=== PATIENT | female | born 1965 | race Caucasian/White ===

== ENCOUNTER → 2019-10-27 09:27 | Outpatient (CLI) | payer BC, SELFPAY ==
--- NOTE | ~2019-10-27 | MM_ITS ---
EXAMINATION: MM diagnostic rene RT w javi HISTORY: Six-month follow-up for probably benign right breast calcifications TECHNIQUE: Craniocaudal, mediolateral, and mediolateral oblique 3-D tomosynthesis images of the right breast were performed and synthetic 2-D images were generated. Magnification views are also obtained . CAD analysis was submitted and interpreted. COMPARISON: 04/13/2017, 01/06/2019, 12/23/2018, 10/28/2017, 10/02/2016 BREAST PARENCHYMAL COMPOSITION: There are scattered areas of fibroglandular density. FINDINGS: Again seen are subtle grouped calcifications in the middle third of the upper outer quadran t of the breast at the 10:00 location 5 cm from the nipple. These appear to be round in morphology. N o suspicious mass or architectural distortion are identified. There has been no suspicious interval c hange. IMPRESSION: 1. Stable, probably benign right breast calcifications. 2. Given one year of interval stability, recommend 12 month followup right diagnostic mammogram. Of n ote, the patient is also due for screening mammography on the left in December of this year. BI-RADS category 3, probably benign findings. Reviewed, dictated and finalized at location A. IMPRESSION: 1. Stable, probably benign right breast calcifications. 2. Given one year of interval stability, recommend 12 month followup right diag nostic mammogram. Of note, the patient is also due for screening mammography on the left in December of this year. BI-RADS category 3, probably benign findings.
== END ==
PROVIDERS: Visit Provider Obstetrics & Gynecology
DX: R92.8 Other abnormal and inconclusive findings on diagnostic imaging of breast (principal)
CPT/HCPCS: 77061; 77065; G0279

== ENCOUNTER → 2020-03-29 10:42 | Outpatient (CLI) | payer BC, SELFPAY ==
--- NOTE | ~2020-03-29 | MM_ITS ---
EXAMINATION: MM screening rene BI w javi HISTORY: Screening TECHNIQUE: Craniocaudal and mediolateral oblique 3-D tomosynthesis images were obtained and synthetic 2-D images were generated. CAD analysis was submitted and interpreted. COMPARISON: Comparison to multiple prior studies sequentially, with oldest reviewed study dated 10/28. BREAST PARENCHYMAL COMPOSITION: There are scattered areas of fibroglandular density. FINDINGS: There is no evidence of suspicious mass, calcification, or architectural distortion to sugg est malignancy in either breast. There has been no suspicious interval change. IMPRESSION: 1. No mammographic evidence of malignancy. 2. Recommend routine screening mammography in one year. BI-RADS Category 1: Negative Reviewed, dictated and finalized at location A.
== END ==
PROVIDERS: PCP Family Medicine; Visit Provider Nurse Practitioner Obstetrics & Gynecology
DX: Z12.31 Encounter for screening mammogram for malignant neoplasm of breast (principal)
CPT/HCPCS: 77063; 77067

== ENCOUNTER → 2021-02-28 06:46 | Outpatient (CLI) | payer BC, SELFPAY ==
[2021-02-28 19:11] LABS: SARS-CoV-2 RNA PCR Positive
== END ==
PROVIDERS: PCP Family Medicine; Visit Provider Family Medicine
DX: U07.1 COVID-19 (principal)
CPT/HCPCS: C9803; U0003; U0005

== ENCOUNTER 2022-01-09 00:51 | Day surgery (SDC) | payer BC, SELFPAY ==
[2022-01-02 13:53] VITALS: BMI 32.6
[2022-01-09 07:15] VITALS: BP 147/80; PULSE 81; RESP 16; TEMP 37; O2SAT 98; BMI 33.3
--- NOTE | 2022-01-09 07:26 | WPDGICN ---
Assessment and Plan Assessment and plan (1) Encounter for screening colonoscopy: Code(s): Z12.11 - Encounter for screening for malignant neoplasm of colon Status: Acute Assessment and Plan: Patient presents today for screening colonoscopy. Appears to be at average risk for colon polyps. Further recommendations will be given after endoscopy. GI Consult Note Consult date/time: 01/09/22 07:26 Reason for consult: Neoplasia screening. HPI: Kimi Arthur is a 56 year old female Presents for screening colonoscopy. She offers no complaints or problems at present. Reports her current weight appetite bowel sounds are normal. She denies any blood in her stools. Patient previously had colonoscopy 2016 because of rectal bleeding. Found to have an infectious colitis at that time. She also was noted to have hemorrhoids. She has no prior history of polyps. Family history is noncontributory with no family history of colon rectal disease. patient referred for neoplasia screening which will be performed today. Review of Systems Review of Systems: Review of systems noncontributory. 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 HLD (hyperlipidemia) Menstrual abnormality Mixed hyperlipidemia Otitis media of right ear PPD screening test Surgical History Surgical History History of hysteroscopy Hx of section (~2006) Status post biopsy of uterine cervix [place] teeth extracted Family History Family History Mother Family history of mental disorder Family history of Parkinson's disease Sibling Hypertension Father Hypertension Social History Social History (Updated 12/09/21 @ 09:35 by Amanda Chapman [facility]) Smoking packs per day: 1.5 Smoking cigarettes per day: 30.0 Years smoked: 18 Smoking pack-years: 27.00 Smoking status: Former smoker Tobacco type: cigarettes Second hand tobacco smoke exposure: No Smoking end date: 08/16/99 Alcohol intake: current Drinks per week: 5 Alcohol use details: BEERS Substance use: never Substance use type: does not use Living arrangements: with family Gender identity (if verbalized by the patient): Female Sexual Orientation (if Verbalized by the Patient): Straight or Heterosexual Spiritual care concerns: No Agree to blood products: Yes Meds Home Medications and Allergies Home Medications Medication Instructions Recorded Confirmed Type drospirenone (contraceptive) 4 mg 4 mg PO DAILY 06/13/21 01/09/22 History (28) tablet (Slynd) loratadine 5 mg-pseudoephedrine ER 1 tablet PO DAILY 12/09/21 01/09/22 History 120 mg tablet,extended release,12hr (Claritin-D 12 Hour) rosuvastatin 10 mg tablet 10 mg PO DAILY #30 tabs 12/14/21 01/09/22 Rx fluticasone propionate 50 1 spray intranasal DAILY 01/02/22 01/09/22 History mcg/actuation nasal spray,suspension Allergies Allergy/AdvReac Type Severity Reaction Status Date / Time erythromycin base Allergy Unknown Tachycardia Verified 01/09/22 07:25 horse flies Allergy Severe Anaphylaxis Uncoded 01/09/22 07:25 Exam Narrative: Physical exam reveals patient to be alert. Vital signs stable. HEENT exam is unremarkable. Patient is anicteric. Lungs are clear to auscultation and percussion. Heart is without murmur or extra sounds. Abdominal exam bowel sounds are present soft nontender with no organomegaly. Digital external rectal exam is normal.
[2022-01-09] MEDS: LACTATED RINGERS 1,000 ML 150 ML IV CONT (07:38)
--- NOTE | 2022-01-09 08:06 | WPDANESEPPF ---
Anes - Initial Pre Proc Eval Procedure: Operation Date: 01/09/22 08:30 Proposed Procedures p Screening Colonoscopy - Delfino Mccray MD Date/Time: 01/09/22 08:06 Surgeon: Delfino Mccray MD Pre Op Diagnosis: neoplasm screening Patient Data Age: 56 Gender: F Height: 1.63 m Weight: 88 kg Last Vital Signs Temp 98.6 F 01/09/22 07:15 Pulse 81 01/09/22 07:15 Resp 16 01/09/22 07:15 BP 147/80 H 01/09/22 07:15 Pulse Ox 98 01/09/22 07:15 O2 Del Method Room Air 01/09/22 07:15 Allergies Allergy/AdvReac Type Severity Reaction Status Date / Time erythromycin base Allergy Unknown Tachycardia Verified 01/09/22 07:25 horse flies Allergy Severe Anaphylaxis Uncoded 01/09/22 07:25 Home Medications Medication Instructions Recorded Confirmed Type drospirenone (contraceptive) 4 mg 4 mg PO DAILY 06/13/21 01/09/22 History (28) tablet (Slynd) loratadine 5 mg-pseudoephedrine ER 1 tablet PO DAILY 12/09/21 01/09/22 History 120 mg tablet,extended release,12hr (Claritin-D 12 Hour) rosuvastatin 10 mg tablet 10 mg PO DAILY #30 tabs 12/14/21 01/09/22 Rx fluticasone propionate 50 1 spray intranasal DAILY 01/02/22 01/09/22 History mcg/actuation nasal spray,suspension Patient hx anesthesia problems: none Family hx anesthesia problems: none Results Review: All pre-operative results and documents have been reviewed as part of the pre-operative evaluation. 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 HLD (hyperlipidemia) Menstrual abnormality Mixed hyperlipidemia Otitis media of right ear PPD screening test Surgical History Surgical History History of hysteroscopy Hx of section (~2006) Status post biopsy of uterine cervix [place] teeth extracted Family History Family History Mother Family history of mental disorder Family history of Parkinson's disease Sibling Hypertension Father Hypertension Social History Social History (Updated 12/09/21 @ 09:35 by Amanda Chapman [facility]) Smoking packs per day: 1.5 Smoking cigarettes per day: 30.0 Years smoked: 18 Smoking pack-years: 27.00 Smoking status: Former smoker Tobacco type: cigarettes Second hand tobacco smoke exposure: No Smoking end date: 08/16/99 Alcohol intake: current Drinks per week: 5 Alcohol use details: BEERS Substance use: never Substance use type: does not use Living arrangements: with family Gender identity (if verbalized by the patient): Female Sexual Orientation (if Verbalized by the Patient): Straight or Heterosexual Spiritual care concerns: No Agree to blood products: Yes Anes - Eval Final PreProcedure Day of Procedure 01/09/22 08:06 Patient weight: obese Heart: regular rate and rhythm Lungs: clear to auscultation Airway: Mallampati scale class II Neurological: alert and oriented Last oral intake: >/= 8 hours ASA classification: III Emergent: no Anesthetic plan: proceed Anesthesia type and monitoring: general GIVS and standard monitoring Results Review: All pre-operative results and documents have been reviewed as part of the pre-operative evaluation. Informed Consent: The patient's anesthetic plan and its attendant risks and benefits were discussed with the patient/family/POA. Questions were solicited and answers provided to the satisfaction of the patient/family/POA.
[2022-01-09 08:34] VITALS: BP 89/68; PULSE 84; RESP 24; O2SAT 97
[2022-01-09 08:44] VITALS: BP 119/98; PULSE 87; RESP 19; O2SAT 100
[2022-01-09 08:54] VITALS: BP 154/98; PULSE 89; RESP 22; O2SAT 100
== END 2022-01-09 09:06 | disposition home or self-care (01) ==
PROVIDERS: PCP Family Medicine; Visit Provider Internal Medicine Gastroenterology
PROC: 0DJD8ZZ Inspection of Lower Intestinal Tract, Via Natural or Artificial Opening Endoscopic (ICD-10-PCS; CPT 45378; principal; 2022-01-09 08:30)
DX: Z12.11 Encounter for screening for malignant neoplasm of colon (principal); K64.8 Other hemorrhoids; K57.30 Diverticulosis of large intestine without perforation or abscess without bleeding; E78.2 Mixed hyperlipidemia; F41.1 Generalized anxiety disorder; F32.9 Major depressive disorder, single episode, unspecified; M51.36 Other intervertebral disc degeneration, lumbar region; Z87.891 Personal history of nicotine dependence; E66.9 Obesity, unspecified; Z68.33 Body mass index [BMI] 33.0-33.9, adult
CPT/HCPCS: 45378; J2704; J7120

== ENCOUNTER → 2022-02-12 09:52 | Outpatient (CLI) | payer BC, SELFPAY ==
--- NOTE | ~2022-02-12 | MM_ITS ---
EXAMINATION: MM screening rene BI w javi HISTORY: Screening TECHNIQUE: Craniocaudal and mediolateral oblique 3-D tomosynthesis images were obtained and synthetic 2-D images were generated. CAD analysis was submitted and interpreted. COMPARISON: Comparison to multiple prior studies sequentially, with oldest reviewed study dated 12/23. BREAST PARENCHYMAL COMPOSITION: There are scattered areas of fibroglandular density. FINDINGS: Stable benign-appearing left breast mass. There is no evidence of suspicious mass, calcific ation, or architectural distortion to suggest malignancy in either breast. There has been no suspicio us interval change. IMPRESSION: 1. No mammographic evidence of malignancy. 2. Recommend routine screening mammography in one year. BI-RADS Category 2: Benign finding(s). Reviewed, dictated and finalized at location A.
== END ==
PROVIDERS: PCP Family Medicine; Visit Provider Physician Assistant
DX: Z12.31 Encounter for screening mammogram for malignant neoplasm of breast (principal)
CPT/HCPCS: 77063; 77067

== ENCOUNTER 2022-04-09 14:22 | Outpatient (CLI) | payer BC, SELFPAY ==
--- NOTE | ~2022-04-09 | MR_ITS ---
EXAMINATION: MR lumbar spine wo con DATE: 04/09/2022 15:27 INDICATION: Lumbar radiculopathy. Low back pain. Left leg pain. TECHNIQUE: Magnetic resonance imaging (MRI) of the lumbar spine was performed without intravenous con trast. Sequences included sagittal T2-weighted FSE, sagittal T2-weighted FS FSE, sagittal T1-weighted FSE, and axial T2-weighted FSE. COMPARISON: Lumbar spine MRI 12/25/2008 FINDINGS: There is 4 degrees levocurvature of lumbar spine. Vertebral body heights are normal. There is moderately decreased disc height at L5-S1. The distal spinal cord signal intensity is normal. The conus medullaris is at T12-L1. The following disc levels are specifically discussed: L1-L2: The disc is mildly bulging. There is mild bilateral facet joint osteoarthritis. There is mild left neural foraminal stenosis. There is mild central canal stenosis. L2-L3: The disc is bulging and has an annular fissure. There is mild bilateral facet joint osteoarthr itis. There is mild bilateral neural foraminal stenosis. There is mild central canal stenosis. L3-L4: The disc is mildly bulging. There is moderate bilateral facet joint osteoarthritis. There is m ild bilateral neural foraminal stenosis. There is mild central canal stenosis. L4-L5: The disc is bulging and has an annular fissure. There is severe bilateral facet joint osteoart hritis. There is mild bilateral neural foraminal stenosis. There is mild central canal stenosis. L5-S1: The disc is bulging and has an annular fissure. There is severe bilateral facet joint osteoart hritis. There is moderate bilateral neural foraminal stenosis. There is mild central canal stenosis. IMPRESSION: 1. Moderate lower lumbar spondylosis, worsened from 12/25/2008. Reviewed, dictated and finalized at location A.
== END 2022-04-09 14:23 ==
PROVIDERS: Visit Provider Physical Medicine & Rehabilitation
DX: M47.26 Other spondylosis with radiculopathy, lumbar region (principal)
CPT/HCPCS: 72148

== ENCOUNTER 2022-10-27 13:15 | Emergency (ER) | payer OTHER, SELFPAY ==
--- NOTE | ~2022-10-27 | XR_ITS ---
EXAMINATION: [id number] DATE: 10/27/2022 13:42 INDICATION: Right chest pain. Fall 5 days ago. TECHNIQUE: A frontal view of the chest and 2 views on 3 radiographs of the right ribs were obtained. COMPARISON: None. FINDINGS: There is mild atelectasis in left lower lung zone. No pleural effusion or pneumothorax. The heart size is normal. IMPRESSION: 1. No acute rib fracture. Reviewed, dictated and finalized at location A. IMPRESSION: 1. No acute rib fracture.
--- NOTE | 2022-10-27 13:25 | ED.FALL ---
HPI - Fall General Chief Complaint: Fall Stated Complaint: fall, chest,rt shoulder blade pain Source: patient and RN notes reviewed History of Present Illness HPI Narrative: 56 yo F presents to urgent care with complaints of right chest pain that radiates to her right mid back. Pt states the pain is exacerbated with deep inhalations and torso movements. Pt states she fell after tripping on the concrete and landing on her right arm and right chest. Pt denies any head injury or LOC. Denies any right arm or shoulder pain, neck pain, SOB,abdominal pain, or vomiting. Denies any fevers or chills. Pt states she just finished a course of prednisone for a sinus infection so she wasn't taking any NSAIDs with that. Pt does report attempting Flexeril with minimal relief. Related Data Home Medications Medication Instructions Recorded Confirmed diclofenac potassium 50 mg tablet 50 mg PO BID 04/27/22 10/27/22 Allergies Allergy/AdvReac Type Severity Reaction Status Date / Time erythromycin base Allergy Unknown Tachycardia Verified 10/27/22 13:22 horse flies Allergy Severe Anaphylaxis Uncoded 10/27/22 13:22 Review of Systems Review of Systems: CONSTITUTIONAL: Denies fever, chills, or sweats. EYES: Denies visual changes, redness, or discharge. ENT: Denies otalgia and sore throat CARDIOVASCULAR:Right sided chest pain with deep inhalation and movements. RESPIRATORY: Denies cough or dyspnea. GASTROINTESTINAL: Denies abdominal pain, nausea, vomiting, or diarrhea. GENITOURINARY: Denies dysuria or hematuria. SKIN: Denies rash or itching. MUSCULOSKELETAL: Denies back pain, joint pain, or myalgia. NEUROLOGIC: Denies headache, numbness, or weakness. 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 HLD (hyperlipidemia) Menstrual abnormality Mixed hyperlipidemia Otitis media of right ear PPD screening test Sciatic pain Surgical History Surgical History History of hysteroscopy Hx of section (~2006) Status post biopsy of uterine cervix [place] teeth extracted Family History Family History Mother Family history of mental disorder Family history of Parkinson's disease Sibling Hypertension Father Hypertension Social History Social History Smoking packs per day: 1.5 Smoking cigarettes per day: 30.0 Years smoked: 18 Smoking pack-years: 27.00 Smoking status: Former smoker Tobacco type: cigarettes Second hand tobacco smoke exposure: No Smoking end date: 08/16/99 Alcohol intake: current Drinks per week: 5 Alcohol use details: BEERS Substance use: never Substance use type: does not use Living arrangements: with family Occupation/Education: occupation Gender identity (if verbalized by the patient): Female Sexual Orientation (if Verbalized by the Patient): Straight or Heterosexual Spiritual care concerns: No Agree to blood products: Yes Comments At the time of my signature, I reviewed and agree with the nursing past medical, surgical, social, and family history. There is no relevant family history pertinent to the patient complaint. Exam Narrative: GENERAL: This is a well-nourished, well-developed patient, in no apparent distress. HEAD: normocephalic, atraumatic. EYES: PERRL. Sclera clear/white. Vision is grossly intact. NOSE: External nose normal with no obvious nasal discharge, nares without redness, no rhinorrhea. NECK: Neck supple, non-tender without lymphadenopathy, masses or thyromegaly. CARDIOVASCULAR: Regular rate and rhythm without murm
[2022-10-27 13:26] VITALS: BP 121/64; PULSE 92; RESP 16; TEMP 37.2; O2SAT 97
== END 2022-10-27 14:04 | disposition home or self-care (01) ==
PROVIDERS: Emergency Provider Nurse Practitioner Family; PCP Family Medicine
DX: S20.211A Contusion of right front wall of thorax, initial encounter (principal); W18.09XA Striking against other object with subsequent fall, initial encounter; M51.36 Other intervertebral disc degeneration, lumbar region; E78.2 Mixed hyperlipidemia
CPT/HCPCS: 71101; 99213; G0463

== ENCOUNTER → 2023-03-11 07:13 | Outpatient (CLI) | payer OTHER, SELFPAY ==
--- NOTE | ~2023-03-11 | MM_ITS ---
EXAMINATION: MM screening [facility] BI w javi HISTORY: Screening mammogram TECHNIQUE: Craniocaudal and mediolateral oblique 3-D tomosynthesis images were obtained and synthetic 2-D images were generated. CAD analysis was submitted and interpreted. COMPARISON: 02/12/2022, 03/29/2020, 10/27/2019 BREAST PARENCHYMAL COMPOSITION: There are scattered areas of fibroglandular density. FINDINGS: Stable left breast masses are considered benign given the lack of interval change. No suspi cious mass, calcification, or architectural distortion are identified in either breast to suggest mal ignancy. There has been no suspicious interval change. IMPRESSION: 1. No mammographic evidence of malignancy. 2. Recommend routine screening mammography in one year. BI-RADS Category 2: Benign finding(s). Reviewed, dictated and finalized at location A.
== END ==
PROVIDERS: PCP Family Medicine; Visit Provider Physician Assistant
DX: Z12.31 Encounter for screening mammogram for malignant neoplasm of breast (principal)
CPT/HCPCS: 77063; 77067

== ENCOUNTER 2023-04-30 09:40 | Emergency (ER) | payer OTHER, SELFPAY ==
--- NOTE | ~2023-04-30 | XR_ITS ---
EXAMINATION: XR chest 1V portable DATE: 04/30/2023 10:05 INDICATION: Chest pain. TECHNIQUE: A single frontal view of the chest was obtained. COMPARISON: None. FINDINGS: There is no pneumonia, pleural effusion, or pneumothorax. The heart size is normal. IMPRESSION: 1. No acute cardiopulmonary disease. Reviewed, dictated and finalized at location A.
--- NOTE | ~2023-04-30 | CT_ITS ---
EXAMINATION: CT abdomen pelvis w con DATE: 04/30/2023 10:43 INDICATION: Epigastric pain TECHNIQUE: Computed tomography (CT) of the abdomen and pelvis was performed with 100 cc Omnipaque 350 intravenous contrast. The dose-length product was 850.18 mGy-cm. Automated exposure control and iter ative reconstruction technique were employed. COMPARISON: None. FINDINGS: Lung bases are unremarkable. There is calcified granuloma of the right middle lobe. Heart s ize is normal. No significant vascular abnormality. No lymphadenopathy. Small fat-containing umbilica l hernia. There are small subcentimeter hypodensity of the right hepatic lobe, most likely benign cys ts. The spleen, pancreas, adrenal glands there is mild right hydronephrosis. There is a 4 mm nonobstr ucting left renal stone. There is a left renal cyst. Gallbladder is present. Nonobstructive bowel gas pattern. Bladder is distended. No lymphadenopathy. Mild lumbar spondylosis IMPRESSION: 1. Mild right hydronephrosis. No obstructing stone is identified. 2: Nonobstructing left nephrolithiasis. Reviewed, dictated and finalized at location B.
[2023-04-30 09:43] VITALS: PULSE 77; RESP 18; O2SAT 100
--- NOTE | 2023-04-30 09:43 | ECG_ITS ---
Measurements Intervals [place] Rate: 67 P: 5 NH: 173 QRS: 28 QRSD: 94 T: 45 QT: 395 QTc: 419 Interpretive Statements SINUS RHYTHM BASELINE ARTIFACT- I, III NORMAL ECG NO PREVIOUS ECG AVAILABLE FOR COMPARISON Electronically Signed On 04-30-2023 10:26:24 CDT by Wilberto Whiteside D.O.
[2023-04-30 09:55] VITALS: PULSE 73
[2023-04-30 10:02] VITALS: TEMP 36.3
[2023-04-30] MEDS: ASPIRIN 81 MG CHEWABLE TABLET 324 MG PO (10:03)
[2023-04-30 10:04] LABS: Basophils Absolute Auto 0.1 K/mm3 (0.0-0.1); Eosinophils Absolute Auto 0.1 K/mm3 (0-0.3); Eosinophils Percent Auto 2.4 % (0-4.4); Hematocrit 42.3 % (37.0-47.0); Hemoglobin 13.6 g/dL (12.0-15.0); Immature Granulocyte Absolute 0.01 K/mm3 (0.00-0.031); Immature Granulocyte Percent A 0.2 % (0-0.5); Lymphocytes Absolute Auto 1.97 K/mm3 (0.9-3.2); Lymphocytes Percent Auto 33.4 % (18.3-44.2); Mean Corpuscular HGB Conc 32.2 g/dl (32-36); Mean Corpuscular Hemoglobin 28.3 pg (26-34); Mean Corpuscular Volume 87.9 fl (80-100); Mean Platelet Volume 9.7 fl (7.4-10.4); Monocytes Absolute Auto 0.4 K/mm3 (0.1-0.6); Monocytes Percent Auto 7.5 % (2.6-8.5); Neutrophils Absolute Auto 3.3 K/mm3 (1.3-6.7); Neutrophils Percent Auto 55.5 % (45.5-73.1); Platelet Count Result 271 k/mm3 (150-375); Red Blood Count 4.81 M/mm3 (4.2-5.4); Red Cell Distribution Width 16.3 % (11.5-14.5); White Blood Count 5.9 K/mm3 (4.5-10.0)
[2023-04-30 10:16] LABS: Alanine Aminotransferase 22 U/L (6-35); Albumin Level 4.5 g/dL (3.5-5.1); Alkaline Phosphatase 79 U/L (38-126); Anion Gap 8 mmol/L (8-16); Aspartate Amino Transferase 25 U/L (14-36); Bilirubin,Total 0.5 mg/dL (0.2-1.3); Blood Urea Nitrogen 12 mg/dL (7-17); Calcium 9.2 mg/dL (8.4-10.2); Carbon Dioxide 26 mmol/L (22-30); Chloride 104 mmol/L (98-107); Estimated Glomerular Filt Rate > 60; Glucose 98 mg/dL (65-110); Lipase 115 U/L (23-300); Sodium 138 mmol/L (137-145)
[2023-04-30 10:23] LABS: Prothrombin Time 13.5 Seconds (11.1-14.7)
[2023-04-30 10:24] LABS: Partial Thromboplastin Time 28.2 SECONDS (22.3-36.8)
[2023-04-30 10:25] LABS: Troponin I < 0.012 ng/mL (0.000-0.034)
--- NOTE | 2023-04-30 11:37 | ED.CHESTPAIN ---
HPI - Chest Pain General Chief Complaint: Chest Pain Stated Complaint: Chest pain Time Seen by Provider: 04/30/23 09:47 History of Present Illness HPI narrative: This is a 57-year-old female, who denies significant past medical history, presenting to the emergency department complaining of chest pressure for the past day. The patient states yesterday, while at rest she developed a 3/10 midline to left-sided chest pressure that did not radiate. She denies aggravating or alleviating factors. She has no other complaints at this time Related Data Home Medications Medication Instructions Recorded Confirmed diclofenac potassium 50 mg tablet 50 mg PO BID 04/27/22 12/11/22 Allergies Allergy/AdvReac Type Severity Reaction Status Date / Time erythromycin base Allergy Unknown Tachycardia Verified 12/11/22 08:52 horse flies Allergy Severe Anaphylaxis Uncoded 12/11/22 08:52 Review of Systems Review of Systems: CONSTITUTIONAL: Denies fever, chills, or sweats. CARDIOVASCULAR: Chest pressure denies palpitations, or edema. RESPIRATORY: Denies cough or dyspnea. GASTROINTESTINAL: Denies abdominal pain, nausea, vomiting, or diarrhea. GENITOURINARY: Denies dysuria or hematuria. SKIN: Denies rash or itching. MUSCULOSKELETAL: Denies back pain, joint pain, or myalgia. NEUROLOGIC: Denies headache, numbness, dizziness, or weakness. PSYCHIATRIC: Denies anxiety or depression. 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 HLD (hyperlipidemia) Menstrual abnormality Mixed hyperlipidemia Otitis media of right ear PPD screening test Sciatic pain Surgical History Surgical History History of hysteroscopy Hx of section (~2006) Status post biopsy of uterine cervix [place] teeth extracted Family History Family History Mother Family history of mental disorder Family history of Parkinson's disease Sibling Hypertension Father Hypertension Social History Social History Smoking packs per day: 1.5 Smoking cigarettes per day: 30.0 Years smoked: 18 Smoking pack-years: 27.00 Smoking status: Former smoker Tobacco type: cigarettes Second hand tobacco smoke exposure: No Smoking end date: 08/16/99 Alcohol intake: current Alcohol use details: seldom; socially Substance use: never Substance use type: does not use Living arrangements: with family Occupation/Education: occupation Gender identity (if verbalized by the patient): Female Sexual Orientation (if Verbalized by the Patient): Straight or Heterosexual Spiritual care concerns: No Agree to blood products: Yes Exam Narrative: GENERAL: Well-developed, well-nourished, and in no acute distress. HEAD: Normocephalic, atraumatic. EYES: PERRLA and EOMI. ENT: Nares clear, no rhinorrhea or epistaxis. Mucous membranes moist. Oropharynx without tonsillar hypertrophy exudate or other lesions. NECK: Supple. No JVD CHEST: Clear to auscultation. No respiratory distress. No wheezes rales or rhonchi HEART: Regular rate and rhythm. No murmur heard. Normal peripheral pulses. ABDOMEN: Soft, nontender, nondistended, normal active bowel sounds. EXTREMITIES: Normal range of motion. No edema. SKIN: Warm, dry, no rash. NEURO: Alert and oriented x3. Moving all 4 limbs purposefully. PSYCH: Normal mood and affect. Course Course Emergency Course: 11:37 - Heart score 2. EKG not concerning for ischemia. Troponin negative. CBC unremarkable. Chemistries unremarkable. CT abdomen pelvis demonstrates mild right hydronephrosis but is ot
[2023-04-30 12:27] VITALS: BP 128/75; PULSE 78; RESP 16; O2SAT 99
== END 2023-04-30 12:20 | disposition home or self-care (01) ==
PROVIDERS: Emergency Provider Preventive Medicine Aerospace Medicine; PCP Family Medicine
DX: R07.9 Chest pain, unspecified (principal); E78.2 Mixed hyperlipidemia; F41.1 Generalized anxiety disorder; F32.A Depression, unspecified; Z87.891 Personal history of nicotine dependence; Z79.891 Long term (current) use of opiate analgesic
CPT/HCPCS: 36415; 71045; 74177; 80053; 83690; 84484; 85025; 85610; 85730; 93005; 99284; A9270; Q9967

== ENCOUNTER → 2023-05-17 11:52 | Outpatient (CLI) | payer OTHER, SELFPAY ==
--- NOTE | ~2023-05-17 | US_ITS ---
EXAMINATION: US renal BI DATE: 05/17/2023 12:31 INDICATION: N13.30 - Unspecified hydronephrosis TECHNIQUE: Multiple grayscale and Doppler ultrasound images of the kidneys were obtained. COMPARISON: None. FINDINGS: The right kidney measures 12.3 x 3.2 x 5.6 cm. The left kidney measures 12.6 x 4.7 x 5.1 cm. The kidn eys demonstrate normal parenchymal echogenicity. There is no hydronephrosis. The bladder is normal. IMPRESSION: Unremarkable renal sonogram findings. Reviewed, dictated and finalized at location K.
== END ==
PROVIDERS: PCP Physician Assistant; Visit Provider Physician Assistant
DX: N13.30 Unspecified hydronephrosis (principal)
CPT/HCPCS: 76775

== ENCOUNTER 2024-10-17 11:35 | Outpatient (CLI) | payer OTHER, SELFPAY | END 2024-10-17 11:36 | disposition home or self-care (01) | LOC: MICIMG 11:36 | PROVIDERS: PCP Family Medicine; Visit Provider Nurse Practitioner | DX: Z12.31 Encounter for screening mammogram for malignant neoplasm of breast (principal) | CPT/HCPCS: 77063; 77067 ==

== ENCOUNTER 2025-01-17 09:58 | Emergency (ER) | payer OTHER, SELFPAY ==
[2025-01-17 10:16] VITALS: BP 113/73; PULSE 74; RESP 18; TEMP 37.1; O2SAT 98
--- NOTE | 2025-01-17 10:30 | ED_ITS ---
HPI - URI/Sore Throat General Chief Complaint: Upper Respiratory Infection Stated Complaint: COUGH/SINUS/TIRED Source: patient and RN notes reviewed Mode of arrival: ambulatory Limitations: no limitations History of Present Illness HPI Narrative: 59-year-old female presents Express Care complaining of upper respiratory symptoms for 1 week. Patient reports sinus pressure, cough, ear pressure. Patient denies any other upper respiratory symptoms. Patient denies any fevers, body aches, chills, nausea, vomiting, diarrhea. Patient has been doing [id number] cold and flu medications with some relief. She says her symptoms have gotten worse over the last couple days. Patient reports the cough is productive in has mucopurulent sputum. Patient denies any significant past medical history Related Data Home Medications ?Medication ?Instructions ?Recorded ?Confirmed ?Last Taken ?Type progesterone micronized 100 mg 100 mg PO QPM 12/17/23 06/22/24 Unknown History capsule Allergies Allergy/AdvReac Type Severity Reaction Status Date / Time erythromycin base Allergy Unknown Tachycardia Verified 06/22/24 08:56 horse flies Allergy Severe Anaphylaxis Uncoded 06/22/24 08:56 Review of Systems Review of Systems: CONSTITUTIONAL: Denies fever, chills, body aches, or sweats. EYES: Denies visual changes, redness, or discharge. ENT: Positive for congestion and ear fullness. Negative for rhinorrhea, sore throat, or otalgia. CARDIOVASCULAR: Denies chest pain, palpitations, or edema. RESPIRATORY: Positive for cough. Negative for dyspnea. GASTROINTESTINAL: Denies abdominal pain, nausea, vomiting, or diarrhea. GENITOURINARY: Denies dysuria or hematuria. SKIN: Denies rash or itching. MUSCULOSKELETAL: Denies back pain, joint pain, or myalgia. NEUROLOGIC: Denies headache, numbness, or weakness. PSYCHIATRIC: Denies anxiety or depression. All other systems reviewed are negative, except as documented in HPI. [facility] Past Medical History Medical History Sciatic pain HLD (hyperlipidemia) PPD screening test Otitis media of right ear DDD (degenerative disc disease), lumbar Chronic back pain Greater trochanteric pain syndrome of both lower extremities Mixed hyperlipidemia Atypical chest pain KI (generalized anxiety disorder) Chronic diarrhea Depression Menstrual abnormality Surgical History Surgical History [place] teeth extracted Hx of section (~2006) Status post biopsy of uterine cervix History of hysteroscopy Family History Family History Mother Family history of mental disorder Family history of Parkinson's disease Sibling Hypertension Father Hypertension Social History Social History Smoking packs per day: 1.5 Smoking cigarettes per day: 30.0 Years smoked: 18 Smoking pack-years: 27.00 Smoking status: Former smoker Tobacco type: cigarettes Second hand tobacco smoke exposure: No Smoking end date: 08/16/99 Alcohol intake: current Alcohol use details: seldom; socially Substance use: never Substance use type: does not use Living arrangements: with family Occupation/Education: occupation Gender identity (if verbalized by the patient): Female Sexual Orientation (if Verbalized by the Patient): Straight or Heterosexual Spiritual care concerns: No Agree to blood products: Yes Comments At the time of my signature, I reviewed and agree with the nursing past medical, surgical, social, and family history. There is no relevant family history pertinent to the patient complaint. Exam Narrative: GENERAL: This is a well-nourished, well-developed adult, in no apparent distress. They are non ill-appearing, nontoxic appearing. HEAD: normocephalic, atraumatic. EYES: Sclera clear/white. Vision is grossly intact. Conjunctiva normal bilaterally. Extraocular movements intact. EARS: External ears normal, auditory canals clear and without drainage, TMs without erythema or perforation. Hearing grossly intact. NOSE: External nose normal with no obvious nasal discharge, nasal turbinates erythematous, no rhinorrhea. THROAT: Mucous membranes moist, posterior pharynx without redness or swelling, or exudate. Uvula is midline. Postnasal drip present. NECK: Neck supple, non-tender without lymphadenopathy, masses or thyromegaly. CARDIOVASCULAR: Regular rate and rhythm without murmurs, gallops, or rubs. RESPIRATORY: Clear to auscultation. Breath sounds equal bilaterally. No wheezes, rales, or rhonchi. SKIN: warm, Dry, intact with no suspicious lesions or rash, good texture and turgor. NEURO: awake, alert, and oriented to person, place and time. There were no obvious focal neurologic abnormalities. EXTREMITIES: No joint tenderness, effusion, or edema noted. BACK: Nontender without deformity. Course Course Emergency Course: Portions of this record may have been created with voice recognition software Level of Care: Express Care Visit Vital Signs Vital signs: Vital Signs Temperature 98.7 F 01/17/25 10:16 Pulse Rate 74 01/17/25 10:16 Respiratory Rate 18 01/17/25 10:16 Blood Pressure 113/73 01/17/25 10:16 Pulse Oximetry 98 01/17/25 10:16 Temperature 98.7 F 01/17/25 10:16 Pulse Rate 74 01/17/25 10:16 Respiratory Rate 18 01/17/25 10:16 Blood Pressure 113/73 01/17/25 10:16 Pulse Oximetry 98 01/17/25 10:16 MDM - URI/Sore Throat MDM Narrative Medical decision making narrative: Patient likely has developed a bacterial sinusitis. Will Treat with Augmentin. Discussed physical exam findings. Advised supportive measures and signs/symptoms to go to the ER. Pt is appropriate for outpt treatment and f/u. Differential Diagnosis Differential diagnosis: Likely upper respiratory infection, sinusitis and viral infection Discharge Plan Discharge Clinical Impression: Sinusitis Qualifiers: Sinusitis location: unspecified location Chronicity: acute Recurrence: non- recurrent Qualified Code(s): J01.90 - Acute sinusitis, unspecified Patient Disposition: Home Condition: Stable Instructions: Antibiotic Form, Sinusitis (ED) Additional Instructions: Take the antibiotics as directed and complete the course even if you start to feel better. You may use a Neti pot saline rinse 3 times a day with lukewarm distilled water Continue to take Tylenol or Motrin for pain. Take benzonatate tablets as needed for cough. Use a humidifier or vaporizer at night. Drink plenty of water. 8-10 glasses per day. Use flonase 2 times per day for 5 days then as needed Take mucinex 2 times per day and be sure to take with 8oz of water. Follow up with Primary provider in 3-5 days Please go to the ER if he develops any difficulty breathing, worsening symptoms, or any other concerns Patient Language: Vincentian Prescriptions: New benzonatate 100 mg capsule 100 mg PO TID PRN (Reason: cough) Qty: 20 0RF amoxicillin-pot clavulanate 875-125 mg tablet 1 tablet PO Q12H 7 Days Qty: 14 0RF No Action progesterone micronized 100 mg capsule 100 mg PO QPM Rx Instructions: off 7 days; repeat cycle clotrimazole-betamethasone 1-0.05 % cream 1 applic topical BID Qty: 15 0RF buspirone 5 mg tablet 5 mg PO TID Qty: 90 2RF omeprazole 20 mg capsule,delayed release(DR/EC) 20 mg PO DAILY PRN (Reason: reflux) Qty: 90 2RF rosuvastatin 10 mg tablet 10 mg PO DAILY Qty: 90 3RF montelukast 10 mg tablet 10 mg PO QHS Qty: 30 6RF hydrocodone-acetaminophen 5-325 mg tablet 1 tablet PO Q6H PRN (Reason: pain) Qty: 20 0RF sertraline 100 mg tablet 150 mg PO DAILY Qty: 135 0RF trazodone 50 mg tablet 100 mg PO QHS PRN (Reason: insomnia) Qty: 180 1RF phentermine 30 mg capsule 30 mg PO DAILY Qty: 30 0RF Rx Instructions: must administer 2 hours after breakfast Follow-up/Referrals: Esther De Los Santos MD [Primary Care Provider] - Time of Disposition: 10:29
== END 2025-01-17 10:34 | disposition home or self-care (01) ==
PROVIDERS: PCP Family Medicine
DX: J01.90 Acute sinusitis, unspecified (principal); Z87.891 Personal history of nicotine dependence; M51.369 Other intervertebral disc degeneration, lumbar region without mention of lumbar back pain or lower extremity pain; E78.2 Mixed hyperlipidemia
CPT/HCPCS: 99213; G0463